=== PATIENT | female | born 1975 ===

== ENCOUNTER 2023-08-26 21:14 | Inpatient (IN) | payer OTHER ==
[~2023-08-26] VITALS: Ht 170.2 cm; Wt 89.2 kg
[2023-08-26 21:35] LABS: Calcium, Ionized (POC) 0.91 mmol/L (1.10-1.46); Chloride (POC) 96 mmol/L (98-108); Creatinine (POC) 2.6 mg/dL (0.6-1.0); Glucose (ISTAT POC) 145 mg/dL (70-99); Potassium (POC) 8.9 mmol/L (3.5-5.5); Sodium (POC) 121 mmol/L (135-148); Total CO2 (POC) 16 mmol/L (21-32)
[2023-08-26 21:46] LABS: BASOPHILS ABSOLUTE AUTO 0.05 K/mm3 (0.00-0.23); BASOPHILS PERCENT AUTO 0 % (0-2); EOSINOPHILS PERCENT AUTO 0 % (0-6); Hematocrit 44.1 % (33.0-51.0); Hemoglobin 13.9 g/dL (11.5-16.0); IMMATURE GRAN PERCENT AUTO 3 % (0-1); LYMPHOCYTES ABSOLUTE AUTO 3.43 K/mm3 (0.84-5.20); LYMPHOCYTES PERCENT AUTO 29 % (21-46); MONOCYTES ABSOLUTE AUTO 1.15 K/mm3 (0.16-1.47); MONOCYTES PERCENT AUTO 10 % (4-13); Mean Corpuscular HGB 34.4 pg (26.0-34.0); Mean Corpuscular HGB Conc 31.5 g/dL (31.5-36.5); Mean Corpuscular Volume 109 fL (80-100); Mean Platelet Volume 11.8 fL (9.1-12.4); NEUTROPHILS ABSOLUTE AUTO 6.83 K/mm3 (1.96-9.15); NEUTROPHILS PERCENT AUTO 58 % (41-73); NRBC ABSOLUTE 0.14 K/mm3 (0.00-0.02); NRBC Auto 1.2 /100 WBC (0.0-0.2); RDW Coefficient Variation 13.6 % (11.7-14.2); RDW Standard Deviation 55.8 fL (35.1-46.3); Red Blood Cell Count 4.04 M/mm3 (3.80-5.20); White Blood Cell Count 11.76 K/mm3 (4.00-11.30)
[2023-08-26 21:51] LABS: pH Blood Venous 6.84 (7.34-7.37)
[2023-08-26 21:52] LABS: Base Excess Venous -26 mmol/L; Bicarbonate Venous 7.3 mmol/L (24.0-30.0)
[2023-08-26 22:08] LABS: Platelet Count 49 K/mm3 (150-400)
[2023-08-26 22:56] LABS: International Normalized Ratio 1.19; Prothrombin Time Results 12.4 Sec (9.7-11.5)
[2023-08-26 23:49] LABS: Magnesium, Blood 2.6 mg/dL (1.6-2.4)
[2023-08-27] VITALS (80 sets, daily range): BP systolic 71–187; BP diastolic 41–154
[2023-08-27] LABS: Albumin, Blood 2.5 g/dL (3.4-5.0); Albumin/Globulin Ratio 0.9 (0.8-1.8); Bilirubin, Total 5.3 mg/dL (0.1-1.0); Bun/Creatinine Ratio 16.9 (12.0-20.0); Calcium, Blood 7.7 mg/dL (8.5-10.1); Creatinine, Blood 1.95 mg/dL (0.40-1.00); Globulin, Blood 2.9 g/dL (2.2-4.0); Potassium, Blood 4.6 mmol/L (3.5-5.5); Total Protein, Blood 5.4 g/dL (6.4-8.2)
[2023-08-27 00:09] LABS: Base Excess Venous -22.4 mmol/L; Bicarbonate Venous 9.7 mmol/L (24.0-30.0); PCO2 Venous 27.8 mmHg (38-42); pH Blood Venous 7.06 (7.34-7.37)
[2023-08-27 00:42] LABS: Beta-hydroxybutyrate 20.5 mg/dL (0.2-2.8)
[2023-08-27 02:25] LABS: pH Blood Arterial 7.43 (7.35-7.45)
[2023-08-27 02:26] LABS: PCO2 Arterial 29.4 mmHg (35-45); PO2 Arterial 91.6 mmHg (80-100)
[2023-08-27 03:57] LABS: Base Excess Venous -0.5 mmol/L; Bicarbonate Venous 23.1 mmol/L (24.0-30.0); PCO2 Venous 47.1 mmHg (38-42); pH Blood Venous 7.34 (7.34-7.37)
--- NOTE | 2023-08-27 03:58 | NUR ---
ASSUMED CARE PT ARRIVED TO ICU FROM ED AT 0040, INTUBATED AND SEDATED. FENTANYL GTT INFUSING UPON ARRIVAL TO UNIT, SEE FLOWSHEET. PROPOFOL GTT STARTED, LATER PUT ON SB WITH FENTANYL PER DR. PHELPS. SEE FLOWSHEET. PT HAVING MYOCLONIC JERKING, NO PURPOSEFUL MOVEMENTS. PT GRIMACES TO TRAPEZIUS SQUEEZE BUT DOES NOT WITHDRAW FROM PAIN. POSITIVE CORNEAL REFLEX BILATERALLY. NEGATIVE BABINSKI REFLEX. PT'S LEFT SHOULDER OCCASIONALLY TREMULOUS. PUPILS SLUGGISH TO RESPOND TO LIGHT. WHEN PT HAVING MYOCLONIC JERK EYES WILL OPEN WIDE THEN SHUT. RASS -4/-5, CPOT 0. ETT 7.5, 23 CM AT THE TEETH. VENT SETTINGS AC/VC 14/450/5/50%. O2 SATS >95%. CARDIAC MONITORING REFLECTS NSR, HR 80s. EPI GTT INFUSING UPON ARRIVAL TO UNIT, BP STABLE WITH MAP >65. TITRATED DOWN PER TELEPHONE ORDER FROM DR. PHELPS, AND TO USE LEVOPHED INSTEAD IF NEEDED. NO PRESSORS INFUSING AT THIS TIME. MAP >65. PT'S TEMP 96.0 UPON ARRIVAL TO UNIT, PER DR. PHELPS NOT STARTING COOLING. TEMP PYLE PATENT AND DRAINING TO GRAVITY, MINIMAL URINE OUTPUT NOTED. PT HAS ABRASION OVER STERNUM FROM ZOLL PADS. BRUISE TO MID RIGHT BACK AND RIGHT EYE. SEE PICTURES IN CHART OF SKIN ABNORMALITIES. OG TO LIS, BLOOD TINGED OUTPUT NOTED.
[2023-08-27 04:10] LABS: Hematocrit 37.6 % (33.0-51.0); Mean Corpuscular HGB 34.4 pg (26.0-34.0); Mean Corpuscular HGB Conc 34.6 g/dL (31.5-36.5); Mean Platelet Volume 10.4 fL (9.1-12.4); RDW Coefficient Variation 13.2 % (11.7-14.2); RDW Standard Deviation 47.8 fL (35.1-46.3); Red Blood Cell Count 3.78 M/mm3 (3.80-5.20)
[2023-08-27 04:31] LABS: Mean Corpuscular Volume 100 fL (80-100)
[2023-08-27 04:32] LABS: Platelet Count 37 K/mm3 (150-400)
[2023-08-27 04:37] LABS: BAND PERCENT MAN 22 % (0-8); BASOPHILS PERCENT MAN 0 % (0-2); EOSINOPHILS PERCENT MAN 0 % (0-6); LYMPHOCYTES % ATYPICAL MANUAL 2 % (0-0); LYMPHOCYTES ABSOLUTE MAN 0.21 K/mm3 (0.84-5.20); LYMPHOCYTES PERCENT MAN 8 % (21-46); MONOCYTES PERCENT MAN 0 % (4-13); NEUTROPHILS ABSOLUTE MAN 1.89 K/mm3 (1.96-9.15); SEG NEUTROPHILS PERCENT MAN 68 % (41-73); TOTAL CELLS COUNTED 50
[2023-08-27 04:44] LABS: Albumin, Blood 2.8 g/dL (3.4-5.0); Bilirubin, Total 6.9 mg/dL (0.1-1.0); Bun/Creatinine Ratio 16.2 (12.0-20.0); Calcium, Blood 7.4 mg/dL (8.5-10.1); Creatinine, Blood 2.28 mg/dL (0.40-1.00); Globulin, Blood 2.9 g/dL (2.2-4.0); Potassium, Blood 4.1 mmol/L (3.5-5.5); Total Protein, Blood 5.7 g/dL (6.4-8.2)
--- NOTE | 2023-08-27 05:35 | NUR ---
UPDATE CALLED DR. PHELPS REGARDING GLUCOSE 400 AND SODIUM LAB 128. ORDER FOR INSULIN ENTERED. NO OTHER ORDERS AT THIS TIME.
--- NOTE | 2023-08-27 05:43 | NUR ---
SHIFT SUMMARY PT REMAINS INTUBATED WITHOUT SEDATION. PT CONTINUES TO HAVE MYOCLONIC JERKING, EYES OPEN AND CLOSE WITH JERKS. PT NO LONGER GRIMACING TO TRAPEZIUS SQUEEZE. PT CONTINUES TO NOT WITHDRAW FROM PAIN. PT DOES NOT GRIMACE WHEN TRYING TO ELIICIT GAG REFLEX. POSITIVE CORNEAL REFLEX, NO COUGH OR GAG. NO PURPOSEFUL MOVEMENTS AT THIS TIME, PT UNRESTRAINED. RASS -4/-5, CPOT 0. VENT SETTINGS 14/450/5/45%, O2 SATS > 95%. CARDIAC MONITORING REFLECTS NSR, HR 90s. NO PRESSORS INFUSING AT THIS TIME. MAP >65. FEVER AT THIS TIME 99.0 F. SODIUM BICARB INFUSING THROUGH CVC TO RIGHT GROIN, BLOOD NOTED AROUND INSERTION SITE. IO TO LEFT REY REMOVED. TEMP PYLE PATENT AND DRAINING TO GRAVITY, < 5 mL OUT. OG TO LIS, BLOOD TINGED DRAINAGE NOTED. KCL TO BE REPLACED.
--- NOTE | 2023-08-27 05:52 | NUR ---
SHIFT SUMMARY PT REMAINS INTUBATED WITHOUT SEDATION. PT CONTINUES TO HAVE MYOCLONIC JERKING, EYES OPENING WITH JERKS. PT NO LONGER GRIMACING TO TRAPEZIUS SQUEEZE. PT CONTINUES TO NOT WITHDRAW FROM PAIN. PT DOES NOT GRIMACE WHEN TRYING TO ELICIT GAG REFLEX. POSITIVE CORNEAL REFLEX, NO COUGH OR GAG. NO PURPOSEFUL MOVEMENTS AT THIS TIME, PT UNRESTRAINED. RASS -4/-5, CPOT 0. VENT SETTINGS 14/450/5/45%. O2 SATS >95%. CARDIAC MONITORING REFLECTS NSR, HR 90s. NO PRESSORS INFUSING AT THIS TIME, MAP >65. TEMPERATURE AT THIS TIME 99.0 F. SODIUM BICARB INFUSING THROUGH CVC TO RIGHT GROIN, BLOOD NOTED AROUND INSERTION SITE. IO TO LEFT REY REMOVED. TEMP PYLE PATENT AND DRAINING TO GRAVITY, < 5 mL OUT. OG TO LIS, BLOOD TINGED DRAINAGE NOTED.
[2023-08-27 06:19] LABS: Source, Urine Foley catheter
[2023-08-27 06:25] LABS: Appearance, Urine Cloudy (Clear); Blood, Urine 4+ (Neg); Color, Urine Yellow (P-Yellow); Glucose Qualitative, Urine 2+ (Neg); Ketones, Urine 1+ (Neg); Leukocyte Esterase, Urine 1+ (Neg); Nitrite, Urine Neg (Neg); Protein, Urine 4+ (Neg); Urobilinogen, Urine 1+ (Normal)
[2023-08-27 07:09] LABS: Bilirubin, Urine 1+ (Neg)
[2023-08-27 07:18] LABS: Bacteria Few /hpf; Granular Casts 0-2 /lpf (0); Red Blood Cells, Urine 0-2 /hpf (0-2); Squamous Epithelial Cells Few /hpf (Few)
[2023-08-27 08:22] LABS: U Amphetamine Screen Not Detected; U Barbituate Screen Not Detected; U Benzodiazapine Screen DETECTED; U Buprenorphine Screen Not Detected; U Cannabinoids Screen Not Detected; U Cocaine Screen Not Detected; U Methadone Screen Not Detected; U Methamphetamine Screen Not Detected; U Opiates Screen Not Detected; U Oxycodone Screen Not Detected; U Phencyclidine Screen Not Detected
--- NOTE | 2023-08-27 09:49 | NUR ---
[id number] ASSUMED CARE OF PATIENT PATIENT IN NOT ALERT OR ORIENTED. SHE IS UNRESPONSIVE. PUPIL SLUGGISH TO LIGHT EYES DEVIATED UPPERWARD GAZE. SHE IS DECORDICATE POSTURING TO PAINFUL STIMULI TO PECTORAL MUSCLES, SHOULDER TRAPS SQUEEZE. SHE SHOWS NO PAINFUL RESPONSE TO LOWER EXTREMETIES BILAT. FEET OR FLACCID. DOES HAVE SOME MILD CLONIC JERKS INTERMITTENTLY TO NO STIMULI. SHE IS VENTILATED 14/450/5/45%. RR IS 26/ SHE HAS A LOW GRADE FEVER AND RISING. ICE PACKS APPLIED TO EXTREM AND GROIN. SHE HAS A A CENTRAL LINE TO RIGHT GROIN QUAD LUMEN WITH LEVOPHED AT 2MCG STARTING THE SHIFT. SHE HAS A [address] TEMP PYLE IN PLACE. SHE HAS 2 PIV'S SL. RHYTHM IS SINUS RHYTHM TO SINUS TACH. TALKED [facility] THIS MORNING TO AN NEELAM RN. HE IS DOING LEG WORK TO GET PHONE NUMBERS OF FAMILY SINCE WE DO NOT HAVE ANY ON RECORD. HE DID STATE PT DOES NOT HAVE ANY KNOWN ALLERGIES. WILL UPDATE MED LIST THAT HE WAS ABLE TO OFFER. PT WAS RECIENTLY AT [place] [id number] [address] AUG 15 2023 FOR A UTI AND PANIC ATTACKS. PT ALSO UPON ASSESSMENT DOES NOT HAVE A GAG OR COUGH AT THIS TIME. NEELAM DID STATE PT IS BLIND IN THE RIGHT EYE AND MINIMAL VISION IN LEFT EYE. WILL UPDATE DR PHELPS THIS AM.
--- NOTE | 2023-08-27 11:55 | NUR ---
UPDATE: PT HAS CONTINUED TO BE UNSRESPONSIVE ON THE VENTILATOR. SHE IS STILL HAVING MYOCLONIC JERKS INTERMITTENTLY. PALLIATIVE CARE HAS CONTACTED FAMILY IN [place] MOTHER AND DAUGHTER AND NOW A BROTHER. THEY HAVE ALSO BEEN ABLE TO FIND OUT THE BOYFRIEND IS TO GET LIMITED TO NO INFORMATION. HE DID COME IN TODAY AND DID SEE THE CONDITION OF THE PATIENT AT WAS THINKS ITS ALL RELATED TO ETOH W/D AND NOT UNDERSTANDING THE POOR CONDITION THAT SHE IS IN. EEG TO BE DONE HERE VERY SOON. ECHO WAS COMPLETED THIS MORNING, AWAITING RESULTS.
--- NOTE | 2023-08-27 13:32 | NUR ---
UPDATE SPOKE WITH DR PHELPS ABOUT NO URINE OUTPUT AND THE NARROW BP EVEN WHEN INCREASING LEVOPHED WHICH IS NOW AT 8MCG. GIVING ANOTHER NS BOLUS AND THEN LASIX POST INFUSION. TOLL SERVICE OBSERVER AT BEDSIDE. HAD TO CUT PTS HAIR TO GET ACCESS TO HER SCAP. DAUGHTER WAS CALLED AND CONSENTING TO CUT PTS HAIR. DAUGHTER STATED SHE WILL BE UP TO [place] TOMORROW FROM [place].
--- NOTE | 2023-08-27 15:06 | NUR ---
Called by ICU rotary adjusterLynn to assist with locating NOK. Pt is intubated and non-communicative. BERYL Bailey reports a poor prognosis. This PC RN was able to locate next of kin: Dtr - Berna Lowell [phone], lives in [facility] [phone], lives in [facility] [place] [phone], lives in [place] [phone] Spoke with pt's dtrBerna this morning by phone. Notified her of pt's admission to hospital and current medical status. Berna reports pt has been struggling with ETOH for years and provided additional medical history. HX: Seizures apx 1 mth. Intestinal complications, endometriosis with planned surgical intervention. Legally blind, pin point vision with one eye.
--- NOTE | 2023-08-27 15:39 | NUR ---
Code Status Change to DNR Second phone call with dtrBerna included CPR and medical intervention options. Berna elected for DNR with Full Treatment at this time. Berna will be in to see Angie tomorrow 08/28/23. Benra does not want to make any further medical decesions until she sees Angie. Update provided to Dr. Callahan, whom will be entering DNR order. Spoke with pt's mother, Karlie by phone. Karlie expresses shock and disbelief. She reports pt's significant other (apx 1-2 mths) took pt to [facility] for ETOH rehabilitation yesterday 08/26/23. Pt was brought in by EMS from [facility] with cardiac arrest. This PC RN notified Karlie of code status change to DNR.
[2023-08-27] MEDS ORDERED: Vitamin C100 M1 PO (15:43)
--- NOTE | 2023-08-27 15:59 | NUR ---
Dtr request [place], significant other not receive information. Call from pt's mother asking if she could override pt's daughters decision for DNR code status. Reviewed hierarchy for surrogate decision making with pt's mother, Karlie. Pt to remain DNR. Care team notified of info stated above.
--- NOTE | 2023-08-27 16:57 | NUR ---
UPDATE PT BECOMING MORE HYPERTENSIVE. LEVOPHED TITRATED TO OFF AND DBP GREATER THAN 100. PT STILL RIGID T/O. WITH PUPIL STILL SLUGGISH SIZE 3 BILAT. AND DEVIATED UPWARD. DR PHELPS WAS CALLED AND ORDERED HYDRALAZINE AND BUMEX AND NS RATE DOWN TO 50ML/HR STILL NO URINE OUT AFTER 80 OF LASIX GIVEN THIS AFTERNOON, THAT IS WHY THE BUMEX IS ORDERED NOW.
--- NOTE | 2023-08-27 18:41 | NUR ---
END OF SHIFT REPORT. PATIENT IS STILL UNRESPONSIVE. SHE IS STILL HAVING MYCLONIC JERKS AND DECORDICATE POSTURING FOR THIS RN EVEN WITHOUT STIMULATION. SHE HAS PUPIL RESPONSES TO LIGHT HOWEVER SLUGGISH AND RIGHT GREATER THAN LEFT SLIGHTLY. SHE HAS CLEAR LUNGS SOUNDS ON THE VENT SEE VENT SETTINGS. SHE IS HAVING BLEEDING COMING FROM THE OG AND FROM HER MOUTH. SHE HAS A DISTENDED ABD NO BM TODAY HYPO BOWEL TONES, PYLE IS PATENT WITH ONLY 5 CC OUT TODAY DESPITE LASIX AND BUMEX GIVEN TODAY AND 2 LITER BOLUS OF NS. HER GLUCOSE IS DROPPING TODAY WITH NO INSULIN COVERAGE GIVEN, NEW ORDER TO CHANGE IV FLUIDS TO D5W AT 50ML/HR PER DR PHELPS. AWAITING MED TO BE RELEASED FROM PHARMACY. COOLING WRAP IS AROUND HER BODY PER ORDERS HER TEMP IS DOWN TO 98.9 AT THIS TIME. GOAL WAS TO GET TO NORMOTHERMIC AND KEEP HER AT THAT TEMP. BP HAS BEEN HIGH AND LOW THIS EVENING. DR PHELPS AWARE AND HYDRALAZINE HAS BEEN GIVEN 0NE TIME SO FAR. LEVOPHED IS OFF. ENTITLE CO2 IS DOWN TO 18, DR PHELPS IS AWARE OF THIS WELL. DAUGHTER MELVIN WAS INFORMED OF THE CONDITION OF HER MOTHER AND SO WAS PATIENTS MOTHER. BOYFRIEND WAS IN AT BEDSIDE ONE TIME TODAY. DAUGHTER STATED SHE IS COMING UP FROM [place] TOMORROW. PALLIATIVE CARE HAS BEEN WONDERFUL TO FIND THE FAMILY AND INFORM THEM OF THE CONDITIONS THUS FAR. WILL GIVE REPORT TO ON COMING SHIFT TO RESUME CARE.
--- NOTE | 2023-08-27 21:00 | NUR ---
ASSUMED CARE CARE WAS ASSUMED OF PT AT 1900, REPORT GIVEN BY ANDREA CORDOBA. PT INTUBATED WITHOUT SEDATION. PT NOT HAVING MEANINGFUL RESPONSES TO NOXIOUS STIMULI. WITH PAINFUL STIMULI PT WILL HAVE INTERNAL ROTATION OF BLE AND MILD INTERNAL ROTATION OF BUE. MINIMAL CORNEAL REFLEX NOTED. NO COUGH OR GAG. NEGATIVE DOLLS EYES. RASS -5, CPOT 0-1 D/T PT'S BODY TENSE. PT UNRESTRAINED, NO PURPOSEFUL MOVEMENTS. VENT SETTINGS 14/450/5/18%, O2 SATS > 95%. PT TACHYPNEIC. PT'S ETCO2 VALUES BETWEEN 18-21. REFLECTED WITH VITAL SIGNS FROM DAYSHIFT AND PREVIOUS SHIFT REPORT, ETCO2 VALUES CONSISTENT WITH PT CONDITION AND HAVE BEEN TRENDING DOWN. DR. PHELPS AWARE, NO NEW ORDERED INTERVENTIONS. CARDIAC MONITORING REFLECTS SINUS TACH, HR 100s. PT'S BP EXTREMELY LABILE, SEE RANGE IN VITAL SIGNS DOCUMENTED. LEVOPHED GTT ON SB AT START OF SHIFT, RESTARTED THIS SHIFT, SEE FLOWSHEET FOR TITRATIONS. COOLING WRAP APPLIED TO PT WITH GOAL 98.6 F. PYLE PATENT AND DRAINING TO GRAVITY, PT OLIGURIC. OG TO LIS, DARK RED DRAINAGE NOTED.
[2023-08-28] VITALS (31 sets, daily range): BP systolic 63–175; BP diastolic 40–145
[2023-08-28 04:44] LABS: Hematocrit 36.3 % (33.0-51.0); Hemoglobin 12.8 g/dL (11.5-16.0); Mean Corpuscular HGB 34.9 pg (26.0-34.0); Mean Corpuscular HGB Conc 35.3 g/dL (31.5-36.5); Mean Corpuscular Volume 99 fL (80-100); Mean Platelet Volume 12.5 fL (9.1-12.4); NRBC ABSOLUTE 0.13 K/mm3 (0.00-0.02); NRBC Auto 2.2 /100 WBC (0.0-0.2); RDW Coefficient Variation 13.8 % (11.7-14.2); Red Blood Cell Count 3.67 M/mm3 (3.80-5.20); White Blood Cell Count 5.81 K/mm3 (4.00-11.30)
[2023-08-28 05:10] LABS: Platelet Count 32 K/mm3 (150-400)
[2023-08-28 05:24] LABS: BAND PERCENT MAN 31 % (0-8); BASOPHILS ABSOLUTE MAN 0.05 K/mm3 (0.00-0.23); BASOPHILS PERCENT MAN 1 % (0-2); EOSINOPHILS ABSOLUTE MAN 0.05 K/mm3 (0.00-0.68); EOSINOPHILS PERCENT MAN 1 % (0-6); LYMPHOCYTES ABSOLUTE MAN 0.11 K/mm3 (0.84-5.20); LYMPHOCYTES PERCENT MAN 2 % (21-46); MONOCYTES ABSOLUTE MAN 0.11 K/mm3 (0.16-1.47); MONOCYTES PERCENT MAN 2 % (4-13); MYELOCYTE ABSOLUTE MAN 0.05 K/mm3 (0.00-0.00); MYELOCYTE PERCENT MAN 1 % (0-0); SEG NEUTROPHILS PERCENT MAN 62 % (41-73); TOTAL CELLS COUNTED 100
[2023-08-28 05:47] LABS: Bun/Creatinine Ratio 11.8 (12.0-20.0); Creatinine, Blood 3.57 mg/dL (0.40-1.00); Globulin, Blood 2.9 g/dL (2.2-4.0); Phosphorus, Blood 0.9 mg/dL (2.5-4.9); Potassium, Blood 4.2 mmol/L (3.5-5.5); Total Protein, Blood 5.9 g/dL (6.4-8.2)
--- NOTE | 2023-08-28 06:10 | NUR ---
SHIFT SUMMARY PT REMAINS INTUBATED WITHOUT SEDATION. OCCASIONALLY PT WOULD GRIMACES TO PAIN, BUT NOT WITHDRAW. OTHER TIMES PT WOULD NOT GRIMACE TO PAIN AND INTERNALLY ROTATE BLE. AT THIS TIME PT MINIMALLY FURROWS BROWS TO TRAPEZIUS SQUEEZE. EYES BILATERALLY HAVE UPWARD FIXED GAZE. POSITIVE CORNEAL REFLEX. NO GAG OR COUGH. EYELIDS FLUTTER OCCASIONALLY. OCCASIONAL MYOCLONIC JERKS. SCLEROEDEMA NOTED. VENT SETTINGS AT THIS TIME AC/VC 14/450/5/35%. O2 SATS > 90%. PT TACHYPNEIC RESPIRATIONS 25-30, ETCO2 TRENDING 16-18. HOSPITALIST NOTIFIED, VBG PENDING. CARDIAC MONITORING REFLECTS SINUS TACH, HR 100s. LEVOPHED GTT INFUSING FOR MAP GOAL > 65. BPs VERY LABILE THIS SHIFT. SEE FLOWSHEET FOR LEVO TITRATIONS. BP CUFF ON LLE, MOST ACCURATE/CONSISTENT BP AT THIS TIME. CAP REFILL > 3 SECONDS, NAIL BEDS DUSKY. COOLING WRAP APPLIED TO PT, GOAL TEMP 98.6. TEMP AT THIS TIME 99.2. PT'S CORE TEMP FLUCTUATED THIS SHIFT. TEMP PYLE PATENT AND DRAINING TO GRAVITY. 1 mL OF URINE COLLECTED. CVC TO RIGHT GROIN PATENT WITH POSITIVE DRAWBACK. PT'S BLOOD SUGARS STABLE THIS SHIFT, D5 INFUSING. PLAN TO REPLACE PHOS THIS MORNING WITH NAPHOS WHEN ARRIVES FROM PHARMACY.
[2023-08-28 06:22] LABS: Base Excess Venous -4.2 mmol/L; Bicarbonate Venous 20.8 mmol/L (24.0-30.0); PCO2 Venous 34.2 mmHg (38-42); pH Blood Venous 7.39 (7.34-7.37)
[2023-08-28 06:52] LABS: Bilirubin, Total 8.3 mg/dL (0.1-1.0)
--- NOTE | 2023-08-28 07:15 | NUR ---
Assumed care of pt at 0700. Bedside report received from Chen CORDOBA. Pt is not sedated and not restrained. Responds to centrally applied painful stimulus. Inconsistent responses to peripherally applied painful stimulus. Negative dolls eyes. No gag reflex. No cough. Occasional corneal reflex. Breathing over ventilator. RR 20s and AC is set to 14. Bright red blood from OG which is to LIS. Not enough to reach suction cannister. Bright red blood from mouth with oral care, scant amount. Plan for dental hygenist to assess patient. Nieto catheter in place, total anuria for previous shift.
--- NOTE | 2023-08-28 09:00 | NUR ---
Dr Callahan in to see patient. Discussed vasopressor requirements with provider and that NIBP is being measured on L calf as this is the only extremity that is providing consistent measurements. Provider states plan to place arterial line.
--- NOTE | 2023-08-28 12:30 | NUR ---
Dr Callahan inserted arterial line. Measurement correlates with NIBP, which is now low. Provider at beside is aware of hypotension. New orders received for vasopressin.
--- NOTE | 2023-08-28 12:40 | NUR ---
ASSUMED CARE I ASSUMED CARE OF THIS PATIENT AT 1240 FROM BERLY PEÑALOZA. A-LINE PLACED INTO LT FEMORAL WITH PRESSURE DRESSING. PATIENT IS LYING IN BED INTUBATED ON AC/VC 14/450/5/35%. NO SEDATION AT THIS TIME. PATIET OPENS EYES SPONTANEOUSLY, BUT DOES NOT APPEAR PURPOSEFUL. MINIMAL REPSONSE TO PAINFUL STIMULI INTERMITTENTLY. PYLE PATENT AND DRAINING MINIMAL URINE TO GRAVITY. D5 GTT DC'D D/T GLUCOSE STABILITY. VASOPRESSIN @ 0.04 UNITS/MIN, LEVOPHED @ 15MCG/MIN, AND NS TKO INF TO RT FEMORAL CL. PIV ON BFA SALINE LOCKED.
[2023-08-28 12:59] LABS: PCO2 Arterial 22.9 mmHg (35-45); PO2 Arterial 63.8 mmHg (80-100); pH Blood Arterial 7.47 (7.35-7.45)
--- NOTE | 2023-08-28 15:33 | NUR ---
Supportive visit with Dr. Callahan Pt's daughter, Berna arrived from [place] she is at bedside. Dr. Callahan reviewed pt's current medical status and poor prognosis. Pt is not responding to voice or painful stimulation at this time. Pt has spontanious opening of eyes for a brief second. Berna actively engauged in conversation with Dr. Callahan and this PC RN. She reports having a conversation with the patient last week, when pt told Berna her liver and heart were in bad shape. Berna did not appear surprised that pt's liver, kidneys and heart are not fully functioning. Berna is in agreement with Dr. Callahan to continue current treatments and re-evaluate care goals tomorrow after repeat Head CT. Will remain available as needed.
[2023-08-28 17:07] LABS: Hematocrit 26.5 % (33.0-51.0); Hemoglobin 9.5 g/dL (11.5-16.0)
--- NOTE | 2023-08-28 18:01 | NUR ---
Call to Dr. Callahan regarding increasing levophed, decreased hemoglobin, and oozing/bruising around the art line insertion site. No new orders received at this time. Plan to re-check hemoglobin level with morning labs.
--- NOTE | 2023-08-28 18:07 | NUR ---
SHIFT SUMMARY PATIENT REMAINS INTUBATED AND OFF OF SEDATION. NO PURPOSEFUL RESPONSES. VASO STILL INF, LEVOPHED UP TO 18 MCG/MIN. A LINE IN PLACE AND DRESSING REPLACED DUE TO BLEEDING. CL IN PLACE. PIV'S SALINE LOCKED. FAMILY AT BEDSIDE. VENT SETTINGS REMAIN 14/450/5/35% SPO2 MID 90'S, ETCO2 18-21, AND RR 20'S. PATIENT HAD 2 BM THIS SHIFT. PUPILS REMAIN NONREACTIVE. DISCONJUGATE GAZE AT TIMES. COOLING BLANKET IN PLACE AFTER TEMP REACHED 99.9F. DOES NOT FOLLOW COMMANDS. LUNG SOUNDS COARSE T/O. BLOODY ORAL SECRETIONS. ABSENT BT. OGT TO LIS WITH DARK RED OUTPUT. MINIMAL URINE OUTPUT FROM TEMP PYLE.
--- NOTE | 2023-08-28 20:57 | NUR ---
ASSUMED CARE AT 1900 PT IS LAYING IN BED INTUBATED WITH SISTER AND DAUGHTER AT BEDSIDE FOR REPORT; THEY LEFT SHORTLY AFTERWARDS APPROPRIATLY TEARFUL. PT IS NOT SEDATED AND NOT RESPONSIVE TO VERBAL STIMULI; PT EYES OPENED TO ORAL CARE BUT NO THER STIMULATION; NO PURPOSEFUL MOVEMENTS; NO GAG OR COUGH; PUPILS FIXED AT 3MM. VENT SETTINGS AC/VC 14/450/5/35%; RR 20-24. COOLING BLANKET IN PLACE WITH CURRENT TEMP 97.4. HR 90'S. SBP 90-100 WITH MAPS 65-70 WHEN NOT STIMULATED; DURING ORAL CARE MAP INCREASED TO 80'S BUT QUICKLY WENT BACK TO 65-70 ONCE DONE; ART LINE TO LT FEM NOTED; LEVOPHED INFUSING AT 22MCG/MIN; VASOPRESSIN INFUSING AT 0.04UNITS/MIN, SEE FLOWSHEET FOR TITRATIONS. OG TO LIS WITH SMALL AMOUNT OF DARK RED DRAINAGE IN TUBING. PYLE IN PLACE WITH MINIMAL OUTPUT. BLOOD TINGED SPUTUM NOTED DURING ORAL CARE; VARIETY OF BRUISES NOTED T/O. CENTRAL LINE TO RT GROIN PATENT. SEE SHIFT ASSESSMENT FOR FULL ASSESSMENT.
[2023-08-29 03:48] LABS: Hematocrit 21.8 % (33.0-51.0); Hemoglobin 7.8 g/dL (11.5-16.0); Mean Corpuscular HGB 34.8 pg (26.0-34.0); Mean Corpuscular HGB Conc 35.8 g/dL (31.5-36.5); Mean Corpuscular Volume 97 fL (80-100); Mean Platelet Volume 12.6 fL (9.1-12.4); NRBC ABSOLUTE 0.13 K/mm3 (0.00-0.02); NRBC Auto 2.6 /100 WBC (0.0-0.2); RDW Coefficient Variation 13.9 % (11.7-14.2); RDW Standard Deviation 49.8 fL (35.1-46.3); Red Blood Cell Count 2.24 M/mm3 (3.80-5.20); White Blood Cell Count 5.02 K/mm3 (4.00-11.30)
[2023-08-29 03:56] LABS: Platelet Count 33 K/mm3 (150-400)
[2023-08-29 04:19] LABS: BAND PERCENT MAN 15 % (0-8); BASOPHILS PERCENT MAN 0 % (0-2); EOSINOPHILS ABSOLUTE MAN 0.05 K/mm3 (0.00-0.68); EOSINOPHILS PERCENT MAN 1 % (0-6); LYMPHOCYTES PERCENT MAN 6 % (21-46); MONOCYTES PERCENT MAN 2 % (4-13); NEUTROPHILS ABSOLUTE MAN 4.56 K/mm3 (1.96-9.15); SEG NEUTROPHILS PERCENT MAN 76 % (41-73); TOTAL CELLS COUNTED 100
[2023-08-29 04:44] LABS: Albumin, Blood 2.7 g/dL (3.4-5.0); Albumin/Globulin Ratio 1.2 (0.8-1.8); Bilirubin, Total 7.2 mg/dL (0.1-1.0); Bun/Creatinine Ratio 12.4 (12.0-20.0); Calcium, Blood 6.1 mg/dL (8.5-10.1); Creatinine, Blood 4.03 mg/dL (0.40-1.00); Globulin, Blood 2.3 g/dL (2.2-4.0); Phosphorus, Blood 2.6 mg/dL (2.5-4.9); Potassium, Blood 3.7 mmol/L (3.5-5.5)
--- NOTE | 2023-08-29 06:21 | NUR ---
END OF SHIFT SUMMARY NO ACUTE EVENTS OVER NIGHT. SHE CONT TO NOT HAVE ANY PURPOSEFUL MOVEMENT; PUPILS FIXED, NO GAG OR COUGH NOTED; NO MOVEMENT TO EXTREMITIES; NO SEDATION DURING THIS SHIFT. CONT TO BE ON THE VENT AC/VC 14/450/5/35%; RR 18-20. TEMP DECREASED TO 95.9; WARM BLANKET APPLIED. HR 80'S. SBP 90-100; LEVOPHED TITRATED UP TO 24MCG/MIN, VASOPRESSIN INFUSING AT 0.04UNITS/MIN, AND EPI STARTED AT 2MCG/MIN; ART LINE TO LT GROIN NOTED. OG TO SUCTION WITH NO NEW OUTPUT. PYLE IN PLACE WITH 21ML OUTPUT. CENTRAL LINE TO RT GROIN NOTED. WILL REPORT TO AM RN WHEN AVAILABLE. PT DAUGHTER AT BEDSIDE AT 0000; HER BROTHER (PT SON) LIVES IN [place] AND WANTED TO FACETIME. DAUGHTER APPROPRIATE AND TEARFUL UNSURE IF SHE WANTS TO BE AT BEDSIDE WHEN THE PT PASSES OR NOT. ACTIVE LISTENING AND COMFORT GIVEN.
--- NOTE | 2023-08-29 07:15 | NUR ---
Assumed care of pt at 0700. Report receoved from Pamella CORDOBA. Pt not receiving sedation. Unreponsive with exception to central applied painful stimulus. No cough, no gag, no corneal reflex. Pupils 2 mm and not responsive to light. Breathing over set rate on ventilator. Levophed at 24 mcg/min, vasopressin 0.04 units/min, epinephrine 2 mcg/min. BP measurement per art line to L groin. Dressing C/D/I.
[2023-08-29 09:16] VITALS: BP 101/56
--- NOTE | 2023-08-29 10:00 | NUR ---
Noted that arterial site began bleeding again. relocation coordinator and Dr Callahan called to bedside as leak was pulsatile. Pressure held and femstop placed per v/o Dr Callahan. Provider stated that femstop at insertions site should not impair BP measurements due to length of catheter. This was done with gerad patch and provided relief for bleeding. Plan for head CT / sierra scan and H/H as well as coagulation labs to assess for DIC. Shortly after provider in to see patient, her daughter Nivia presented to bedside and stated she would like to talk to the palliative care nurse and transition to palliative/compassionate care. Sherif CORDOBA notified. TETE notified.
--- NOTE | 2023-08-29 11:36 | NUR ---
Pt cleared for palliative extubation by TETE. New orders received from Dr Callahan. Care withdrawn at 1115. Pt's daughter, Nivia, has departed along with lock of hair, fingerprint medalions, and rhythm strips. Pt did not have any belongings in hospital room. Per daughter, they have been picked up from [facility]. Pt's sister, Brittani, is at bedside.
--- NOTE | 2023-08-29 12:14 | NUR ---
"Spiritual Care | Comfort Care Pt. is being prepared for extubation, sister welcomes my visit. Prior to extubation we pray for the Pt. Facilitate a life review and establish rapport with Pts. sister. After extubation spiritual care is continued with the reading of scripture. Pts. sister confirms that [facility] will be the families home of choice. Pts. sister verbalized gratitude for the spiritual care visit."
--- NOTE | 2023-08-29 13:09 | NUR ---
Palliative Care Morning Supportive Visit Called to pt room at pt's dtr, Nivia's request. Upon arrival to pt room, Nivia was outside of room at nursing station. She reports pt's son, True lives in [place] and not able to physically be present. True is on speaker phone with phone laid on pt chest. Dtr request pt and son have a "few moments alone to say what he needs to say to be okay." After True's conversation, this PC RN introduced self/role. Provided theraputic listening, offered support and normalized feelings of grief. Additional speaker phone conversation took place with pt's other dtr, Porsha. She is in [place]. Offered same services to Porsha as stated above for True. All three of Angie's children verbalize they would like to initiate terminal withdrawl. Berna verbalized understanding the expected outcome. Dr. Callahan notified of family's agreement for comfort care only and extubation. Dr. Callahan to place orders accordingly. Berna elected to not be present for extubation. This PC RN or Primary RN to call at pt's time of passing. Pt's sister, Brittani arrived to room prior to Berna leaving. Brittani reports she will be visiting with Angie until she has to leave around noon.
--- NOTE | 2023-08-29 13:33 | NUR ---
Support at bedside Pt is actively transitioning. This PC RN sitting with pt.
--- NOTE | 2023-08-29 14:09 | NUR ---
Notification of NOK Primary RN, Odette and this PC RN confirmed Angie's expiration at 1336. Notified dtr, Berna @ 1400 and mother @ 1410 both by phone of pt's passing. Offered grief support. Support well received by Berna. She extends her gratitute to Angie's care team.
--- NOTE | 2023-08-29 15:06 | NUR ---
Pt at 1336. Triston CORDOBA and this RN at bedside. Family notification made by Triston CORDOBA.
== END 2023-08-29 13:36 | DRG 308 ==
LOC: ER 21:14 → EDBD 08-27 00:02 → ICUE 08-27 00:02
PROVIDERS: Emergency Medicine; Internal Medicine Critical Care Medicine; ADMIT Internal Medicine
PROC: 4A133R1 Monitoring of Arterial Saturation, Peripheral, Percutaneous Approach (ICD-10-PCS; principal; 2023-08-27)
PROC: 5A1945Z Respiratory Ventilation, 24-96 Consecutive Hours (ICD-10-PCS; 2023-08-27)
PROC: 0BH17EZ Insertion of Endotracheal Airway into Trachea, Via Natural or Artificial Opening (ICD-10-PCS; 2023-08-27)
PROC: 0DH67UZ Insertion of Feeding Device into Stomach, Via Natural or Artificial Opening (ICD-10-PCS; 2023-08-27)
PROC: 3E033XZ Introduction of Vasopressor into Peripheral Vein, Percutaneous Approach (ICD-10-PCS; 2023-08-27)
PROC: 02HV33Z Insertion of Infusion Device into Superior Vena Cava, Percutaneous Approach (ICD-10-PCS; 2023-08-27)
PROC: 30233J1 Transfusion of Nonautologous Serum Albumin into Peripheral Vein, Percutaneous Approach (ICD-10-PCS; 2023-08-27)
PROC: 5A12012 Performance of Cardiac Output, Single, Manual (ICD-10-PCS; 2023-08-27)
PROC: 04HY32Z Insertion of Monitoring Device into Lower Artery, Percutaneous Approach (ICD-10-PCS; 2023-08-28)
PROC: 4A133B1 Monitoring of Arterial Pressure, Peripheral, Percutaneous Approach (ICD-10-PCS; 2023-08-28)
PROC: 4A133J1 Monitoring of Arterial Pulse, Peripheral, Percutaneous Approach (ICD-10-PCS; 2023-08-28)
DX: I49.01 Ventricular fibrillation (principal); J96.01 Acute respiratory failure with hypoxia; J96.02 Acute respiratory failure with hypercapnia; K72.01 Acute and subacute hepatic failure with coma; N17.9 Acute kidney failure, unspecified; G93.1 Anoxic brain damage, not elsewhere classified; E87.20 Acidosis, unspecified; F10.239 Alcohol dependence with withdrawal, unspecified; Z66 Do not resuscitate; Z51.5 Encounter for palliative care; K70.10 Alcoholic hepatitis without ascites; I46.2 Cardiac arrest due to underlying cardiac condition; D64.9 Anemia, unspecified; R57.0 Cardiogenic shock; E87.5 Hyperkalemia; E83.51 Hypocalcemia; E87.6 Hypokalemia; M79.81 Nontraumatic hematoma of soft tissue; K76.0 Fatty (change of) liver, not elsewhere classified; F41.9 Anxiety disorder, unspecified; G89.29 Other chronic pain; F31.9 Bipolar disorder, unspecified; G43.909 Migraine, unspecified, not intractable, without status migrainosus; R16.0 Hepatomegaly, not elsewhere classified; D69.6 Thrombocytopenia, unspecified; R94.31 Abnormal electrocardiogram [ECG] [EKG]; Z88.0 Allergy status to penicillin; Z88.8 Allergy status to other drugs, medicaments and biological substances; Z98.890 Other specified postprocedural states; Z90.710 Acquired absence of both cervix and uterus; Z90.722 Acquired absence of ovaries, bilateral; Z98.1 Arthrodesis status; Z98.51 Tubal ligation status
CPT/HCPCS: 31500; 36556; 36600; 36620; 51702; 70450; 71045; 71260; 72125; 74177; 80047; 80053; 81001; 82010; 82550; 82803; 82947; 83036; 83605; 83735; 83880; 84100; 84484; 84703; 85014; 85018; 85025; 85610; 86850; 86900; 86901; 87086; 92950; 93005; 93010; 93306; 94002; 94003; 95819; 96365-59; 96366-59; 96368; 99291-25; 99292; C1751; C9113; J0171; J0282; J0360; J1650; J1815; J1940; J1953; J2060; J2250; J2270; J2704; J3010; J3411; J7030; J7040; J7050; J7060; J7070; P9047; Q9967